=== PATIENT | female | born 1990 | race Caucasian/White ===

== ENCOUNTER → 2016-06-06 | Outpatient (CLI) | payer OTHER ==
[2016-06-06 14:29] LABS: BASO % 0.1 % (0.0-1.0); EOS % 0.4 % (0.0-3.0); LARGE UNSTAINED CELL # 0.1 K/mm3 (0.0-0.4); LARGE UNSTAINED CELL % 1.4 % (0.0-4.0); LYMPH # 1.4 K/mm3 (1.5-6.5); LYMPH % 16.5 % (24.0-44.0); MEAN CORPUSCULAR HEMOGLOBIN 31.4 pg (27.0-33.0); MEAN CORPUSCULAR HGB CONC 35.6 g/dl (32.0-36.5); MEAN CORPUSCULAR VOLUME 88.2 fl (80.0-96.0); MONO # 0.2 K/mm3 (0.0-0.8); MONO % 2.7 % (0.0-5.0); NEUTROPHILS # 6.8 K/mm3 (1.8-7.7); NEUTROPHILS % 78.8 % (36.0-66.0); PLATELET COUNT, AUTOMATED 172 k/mm3 (150-450); WHITE BLOOD COUNT 8.6 K/mm3 (4.0-10.0)
--- NOTE | 2016-06-07 02:43 | REP ---
Clinical: Anatomical evaluation. Comparison: 05/08/2016 . Findings: Examination demonstrates a single live intrauterine in transverse (head towards the maternal right side) presentation. motion is identified by technologist. Placenta is noted anteriorly and grade zero without evidence for placenta previa or abruption. Amniotic fluid volume is normal. Cervix measures 5.2 cm in length and appears closed. No evidence for nuchal cord. Gestational age by LMP 24 weeks 3 days with MALENA 09/23/2016 . Gestational age by current measurements 25 weeks 4 days with MALENA 09/15/2016 . FHR equals 147 beats per minute. Estimated weight 816 grams ( 76 percentile). Anatomical assessment demonstrates normal structures including cranium, choroid plexus, cavum, cerebellum/posterior fossa, facial features, lungs, four-chamber heart/ventricular outflow tracts, diaphragm, stomach, cord insertion/three-vessel cord, kidneys/bladder, spine, and extremities. Echogenic focus on the left cardiac ventricle likely prominent chordae tendineae. Impression: Single live intrauterine in transverse lie demonstrating appropriate interval growth. Anatomical assessment is complete and essentially normal. Prominent chordae tendineae noted. Signed by Chao Hobbs MD 06/07/2016 02:35 A
== END ==
LOC: M RAD 11:57 → M LAB 11:57 → MERGE 16:00
PROVIDERS: ATTEND Obstetrics & Gynecology
DX: Z34.02 Encounter for supervision of normal first pregnancy, second trimester (principal)

== ENCOUNTER → 2016-08-27 | Outpatient (REF) | payer OTHER | LOC: M LAB REF 12:53 | PROVIDERS: ATTEND Obstetrics & Gynecology | DX: Z34.03 Encounter for supervision of normal first pregnancy, third trimester (principal) ==

== ENCOUNTER 2016-09-25 11:22 | Inpatient (IN) | payer OTHER ==
[2016-09-25] VITALS (8 sets, daily range): BP systolic 107–142; BP diastolic 56–77
[~2016-09-25] VITALS: Ht 160 cm; Wt 94.0 kg
[2016-09-25] MEDS ORDERED: PENICILLIN G POTASSIUM IV 5 MU in D5W MINI-BAG PLUS 100 ML IV STA ×2 (11:51→18:26)
[2016-09-25] MEDS ORDERED: VALT500T PO (11:57)
[2016-09-25] MEDS ORDERED: miSOPROStol 50 MCG 1/2 TAB (S0191) PO ONE (12:00)
[2016-09-25 12:36] LABS: MEAN CORPUSCULAR HEMOGLOBIN 30.8 pg (27.0-33.0); MEAN CORPUSCULAR HGB CONC 34.4 g/dl (32.0-36.5); MEAN CORPUSCULAR VOLUME 89.3 fl (80.0-96.0); RED CELL DISTRIBUTION WIDTH 13.7 % (11.5-14.5); WHITE BLOOD COUNT 7.2 K/mm3 (4.0-10.0)
[2016-09-25] MEDS ORDERED: PENICILLIN G POTASSIUM IV 2.5 MU in D5W 100 ML IV SCH (16:00)
[2016-09-25] MEDS ORDERED: miSOPROStol 50 MCG 1/2 TAB (S0191) PO SCH (17:30)
[2016-09-25] MEDS ORDERED: BUTORPHANOL 2 MG/ML INJ (J0595) IV ONE (21:00)
[2016-09-25] MEDS ORDERED: PROMETHAZINE INJ 25 MG/ML VIAL (J2550) IV ONE (21:00)
[2016-09-25] MEDS: PENICILLIN G POTASSIUM IV 2.5 MU in D5W 100 ML IV SCH (22:40)
[2016-09-26] VITALS (29 sets, daily range): BP systolic 95–131; BP diastolic 52–79
[2016-09-26] MEDS ORDERED: FENTANYL 2MCG/ML ROPIVACAINE 0.2% IN 0.9% NACL 200ML IVBAG As Ordered ONE (01:22)
[2016-09-26] MEDS ORDERED: FENTANYL/ROPIVACAINE/NACL BAG 200 ML EPIDURAL SCH (01:25)
[2016-09-26] MEDS ORDERED: NALOXONE INJ 0.4 MG/1 ML VIAL (J2310) IV PRN ×3 (01:25→07:00)
[2016-09-26] MEDS ORDERED: ONDANSETRON 4MG/2ML VIAL (J2405) IV PRN ×4 (01:25→07:45)
[2016-09-26] MEDS ORDERED: EPIDURAL COMMENT XX SCH (01:25)
[2016-09-26] MEDS ORDERED: REFRIGERATOR IV KEYS XX PRN (01:25)
[2016-09-26] MEDS ORDERED: ePHEDrine SULFATE 25 MG/5 ML(5MG/ML) SYRINGE IV PRN (01:25)
[2016-09-26] MEDS ORDERED: EPIDURAL/PCA KEYS XX PRN (01:25)
[2016-09-26] MEDS ORDERED: LACTATED RINGER'S 1000 ML IV PRN (01:25)
[2016-09-26] MEDS ORDERED: diphenhydrAMINE INJ 50MG/ML VIAL (J1200) IV PRN (01:25)
[2016-09-26] MEDS ORDERED: OXYTOCIN 30 UNITS IN 0.9% NaCl 500ML IV BAG (J2590) As Ordered ONE (02:14)
[2016-09-26] MEDS ORDERED: OXYTOCIN DRIP 30 UNITS in APPROPRIATE DILUENT 1 EA IV SCH (02:15)
[2016-09-26] MEDS: PENICILLIN G POTASSIUM IV 2.5 MU in D5W 100 ML IV SCH (02:32)
[2016-09-26] MEDS ORDERED: ACETAMINOPHEN TAB 650MG DOSE (2X325MG) As Ordered ONE (05:11)
[2016-09-26] MEDS ORDERED: ACETAMINOPHEN TAB 650MG DOSE (2X325MG) PO ONE (05:15)
[2016-09-26] MEDS ORDERED: BICITRA 30ML SOLN UDC As Ordered ONE (06:15)
[2016-09-26] MEDS ORDERED: GENTAMICIN 80 MG in APPROPRIATE DILUENT 1 EA IV ONE (06:15)
[2016-09-26] MEDS ORDERED: ceFAZolin 2 GM/D5W 50 ML IV BAG (J0690) As Ordered ONE (06:28)
[2016-09-26] MEDS ORDERED: LIDOCAINE PRES-FREE 2% 10ML AMP As Ordered ONE (06:45)
[2016-09-26] MEDS ORDERED: EPINEPHrine INJ 1 MG/ML 1ML VIAL/AMP As Ordered ONE (06:45)
[2016-09-26] MEDS ORDERED: MIDAZOLAM INJ 2 MG/2 ML VIAL (J2250) As Ordered ONE (06:46)
[2016-09-26] MEDS ORDERED: ONDANSETRON 4MG/2ML VIAL (J2405) As Ordered ONE (06:48)
[2016-09-26] MEDS ORDERED: MORPHINE PRES-FREE INJ 10 MG/10 ML VIAL (J2274) As Ordered ONE (06:54)
[2016-09-26 06:55] LABS: CORD GAS ABE V -12.1; CORD GAS HCO3 V 14.8 MEQ/L; CORD GAS O2 SAT V 61.9 %; CORD GAS PCO2 V 37.1 mmHg; CORD GAS PH V 7.219 UNITS; CORD GAS SBC V 14.5 MEQ/L; CORD GAS TCO2 V 15.9 MEQ/L
[2016-09-26 06:56] LABS: CORD GAS HCO3 A 17.8 MEQ/L; CORD GAS O2 SAT A 33.6 %; CORD GAS PCO2 A 61.8 mmHg; CORD GAS PH A 7.077 UNITS; CORD GAS PO2 A 24.4 mmHg; CORD GAS SBC A 13.4 MEQ/L; CORD GAS TCO2 A 19.7 MEQ/L
[2016-09-26] MEDS ORDERED: METOCLOPRAMIDE INJ 10MG/2ML VIAL (J2765) IV PRN (07:00)
--- NOTE | 2016-09-26 07:03 | HPE ---
DATE OF ADMISSION: 09/25/2016 Victoria is a 26-year-old female para 0 with an EDC of 40-2/7 weeks gestation who is admitted for induction. Upon admission, no bleeding. No leakage of fluid. Good movement. 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 She has been on suppressive therapy. No recent outbreak during this . Upon admission, reports no signs or symptoms of herpes. records reviewed. Blood type is O+, rubella immune, hepatitis negative, HIV negative, GC chlamydia negative, 1-hour sugar testing was within normal limits. Her GBS is positive. History of herpes infection. PAST SURGICAL HISTORY: Denies. SOCIAL HISTORY: The patient is . Denies any alcohol or drug use. REVIEW OF SYSTEMS: Unremarkable. MEDICATIONS: - vitamins - Valtrex ALLERGY: drug allergy. PHYSICAL EXAMINATION: Obese female in no acute distress. Abdomen: Soft, nontender, nondistended. Extremities: No clubbing, cyanosis or edema. Vaginal exam done. Thorough inspection of the vulva and vaginal area. No evidence of any herpes lesion noted. Her cervix is fingertip thickened posterior. heart rate 141 to 150s, reactive, occasional contractions. ASSESSMENT: 1. Intrauterine at 40-2/7 weeks gestation being admitted for an induction. 2. History of HSV-1 and 2 currently on suppressive therapy. No evidence of any outbreak during this . 3. GBS positive. PLAN: Admit to labor and delivery. Routine labs sent. Induction process discussed with the patient. We will proceed with Cytotec induction as we do not have Cervidil on formulary. The patient is counseled extensively. The risk and benefit of Cytotec discussed as well as the non-FDA approval, will be started for GBS prophylaxis. Pain management also discussed. The patient opts for an epidural. Will continue to monitor. Anticipate delivery.
[2016-09-26] MEDS ORDERED: METHYLERGONOVINE MALEATE 0.2 MG TAB PO PRN (07:15)
[2016-09-26] MEDS ORDERED: MEASLES,MUMPS,RUBELLA VACCINE INJ (MMR-II) (90707) SC SCH (07:15)
[2016-09-26] MEDS ORDERED: RHOGAM 300 MCG (1500 IU) INJ (J2790) IM SCH (07:15)
[2016-09-26] MEDS ORDERED: PHENYLephrine HCL 500 MCG/5 ML (100MCG/ML) SYRINGE (J2370) As Ordered ONE (07:23)
[2016-09-26] MEDS ORDERED: fentaNYL 100 MCG/2 ML INJECTION (J3010) IV PRN (07:45)
[2016-09-26] MEDS ORDERED: NALBUPHINE HCL 10 MG/ML AMP (J2300) IV PRN (07:45)
[2016-09-26] MEDS ORDERED: KETOROLAC 30 MG/ML VIAL (J1885) IV PRN (07:45)
--- NOTE | 2016-09-26 07:54 | RO ---
DATE OF PROCEDURE: 09/26/2016 PREPROCEDURE DIAGNOSES: 1. Intrauterine at 40-2/7 weeks gestation. 2. Non-reassuring heart rate tracing. tachycardia and repetitive variable deceleration. 3. Chorioamnionitis. 4. GBS positive. 5. Remote from delivery. POSTPROCEDURE DIAGNOSES: 1. Intrauterine at 40-2/7 weeks gestation. 2. Non-reassuring heart rate tracing. tachycardia and repetitive variable deceleration. 3. Chorioamnionitis. 4. GBS positive. 5. Remote from delivery. 6. Nuchal cord times one. 7. Meconium stained fluid. PROCEDURE: Primary low transverse via Pfannenstiel incision. SURGEON: Dr. Jet العراقي. [employer] SALES REPRESENTATIVE: Kathrine King. ANESTHESIA: Epidural. COMPLICATION: None. ESTIMATED BLOOD LOSS: 500 mL. Victoria is a 26-year-old female 1, para 0 who was admitted at 40-2/7 weeks gestation for induction. She underwent Cytotec induction and then progressed to approximately 4 cm. However, she developed tachycardia and maternal temperature up to 101. Also had repetitive variable deceleration. Given that she was remote from delivery and chorioamnionitis, a decision was made to proceed with primary section. The patient counseled extensively. Informed consent obtained. She does have history of positive GBS for which she was being treated. She has a history of herpes type 1 and 2 with no recent outbreak, was on suppressive therapy. FINDINGS: Live female infant in right occiput anterior position with a nuchal cord times one. 7 and 8. weight 8 pounds 6 ounces. Normal-appearing tubes with a small left ovarian cyst on the left ovary. PROCEDURE: After obtaining informed consent, the patient was taken to the operating room where epidural anesthetic was found to be adequate. She was then draped and prepped in usual sterile fashion in the supine position. At this point, a Pfannenstiel incision was made. This was carried down to the fascia. Fascia was incised in midline fashion and carried through laterally. Superior aspect of the fascia was then grasped with two Lacie clamps, tented off and dissected off the rectus muscles sharply. The inferior aspect was dissected off in a similar fashion. Rectus muscles in midline fashion. Perineum identified. Perineal cavity entered bluntly. Superior and inferior dissection of peritoneum was then done with good visualization of the bladder. At this point, a Mobius skin retractor was placed. A low-transverse uterine incision was made. was delivered in atraumatic fashion. The nuchal cord was reduced. Cord doubly clamped and cut and was handed over to the waiting wood heel fitter machine. Cord blood and cord gas were sent. Placenta removed manually. Uterus cleared of all clot and debris and the uterine incision was then repaired in two separate layers of #0 Vicryl sutures. The pelvis was copiously irrigated with normal saline and suctioned out. Attention turned to the peritoneum which was closed in running fashion using #2-0 Vicryl. Fascia closed in two separate segment of #0 Vicryl sutures and the skin was reapproximated in subcuticular fashion using #3-0 Vicryl and a Herber. Steri-Strip placed. The patient tolerated the procedure well. She was then transferred to recovery room in stable condition.
[2016-09-26] MEDS ORDERED: LR 1,000 ML IV SCH (08:00)
[2016-09-26] MEDS: PRENATAL VITAMIN TAB PO SCH (09:00)
[2016-09-26] MEDS: LR 1,000 ML IV SCH ×3 (09:00→23:15)
[2016-09-26] MEDS: NALBUPHINE HCL 10 MG/ML AMP (J2300) IV PRN ×2 (13:06→20:19)
[2016-09-26] MEDS: IBUPROFEN 800 MG TAB PO SCH (17:04)
[2016-09-26] MEDS: NORCO, ANEXSIA 5/325MG TABLET (HYDROcodone/ACETAMINOPHEN) PO PRN ×2 (17:04→23:11)
[2016-09-27] MEDS: IBUPROFEN 800 MG TAB PO SCH ×3 (02:00→17:35)
[2016-09-27 02:28] VITALS: BP 115/59
[2016-09-27] MEDS: NORCO, ANEXSIA 5/325MG TABLET (HYDROcodone/ACETAMINOPHEN) PO PRN ×4 (05:21→20:06)
[2016-09-27] MEDS ORDERED: BICITRA 30ML SOLN UDC PO SCH (06:00)
[2016-09-27 06:34] VITALS: BP 109/54
[2016-09-27 06:53] LABS: MEAN CORPUSCULAR HEMOGLOBIN 30.8 pg (27.0-33.0); MEAN CORPUSCULAR HGB CONC 34.8 g/dl (32.0-36.5); MEAN CORPUSCULAR VOLUME 88.5 fl (80.0-96.0); RED CELL DISTRIBUTION WIDTH 13.9 % (11.5-14.5); WHITE BLOOD COUNT 9.2 K/mm3 (4.0-10.0)
[2016-09-27] MEDS: LR 1,000 ML IV SCH (07:15)
[2016-09-27] MEDS: PRENATAL VITAMIN TAB PO SCH (10:14)
[2016-09-27 18:44] VITALS: BP 130/74
[2016-09-28] MEDS: IBUPROFEN 800 MG TAB PO SCH ×3 (02:22→18:13)
[2016-09-28] MEDS: NORCO, ANEXSIA 5/325MG TABLET (HYDROcodone/ACETAMINOPHEN) PO PRN ×5 (02:23→20:29)
[2016-09-28 06:06] VITALS: BP 121/70
[2016-09-28] MEDS ORDERED: OXYC2.5T PO (08:45)
[2016-09-28] MEDS: PRENATAL VITAMIN TAB PO SCH (09:25)
[2016-09-28] MEDS: DOCUSATE SODIUM 100 MG CAP PO PRN (15:38)
[2016-09-28 18:00] VITALS: BP 120/77
[2016-09-29] MEDS: IBUPROFEN 800 MG TAB PO SCH ×2 (01:00→08:59)
[2016-09-29] MEDS: NORCO, ANEXSIA 5/325MG TABLET (HYDROcodone/ACETAMINOPHEN) PO PRN ×3 (01:08→09:08)
[2016-09-29 05:45] VITALS: BP 126/70
[2016-09-29] MEDS: PRENATAL VITAMIN TAB PO SCH (08:58)
[2016-09-29] MEDS: DOCUSATE SODIUM 100 MG CAP PO PRN (09:07)
[2016-09-29] MEDS ORDERED: PREN27TA3 PO (11:06)
[2016-09-29] MEDS ORDERED: MOTR200T44 PO (11:07)
--- NOTE | 2016-09-29 11:14 | IPNPDOC ---
Progress Note Date of Service The patient was seen on 09/27/16 at 0840. Progress Note SUBJECTIVE: No complaints. She is ambulating without difficulty. She has showered. without difficulty. OBJECTIVE: PHYSICAL EXAMINATION: VITAL SIGNS: 97.9, 79, 18, 109/54 LUNGS:Regular rate. No use of accessory muscles. BREAST EXAMINATION:Soft, nontender. SECTION INCISION: Edges approximated. Clean, dry, no drainage. Steri strips present. EXTREMITIES: Bilateral lower extremities, +1 pitting edema, no erythema. CURRENT LABS: Please see below. ASSESSMENT: Day 1 postoperative. PLAN: Continue supportive nursing care. VS, I&O, 24H, Fishbone Vital Signs/I&O Vital Signs Date Time Temp Pulse Resp B/P (MAP) Pulse Ox O2 Delivery O2 Flow Rate FiO2 09/29/16 09:38 18 09/29/16 09:08 Room Air 09/29/16 05:45 98.1 78 126/70 (88) 09/28/16 06:06 100 I&O- Last 24 Hours up to 6 AM 09/29/16 06:00 Intake Total 1040 ml Balance 1040 ml PORSHA MATUTE CNM September 29, 2016 11:14
--- NOTE | 2016-09-29 11:35 | DS.PDOC ---
Discharge Summary General Date of Admission September 25, 2016 at 11:22 Date of Discharge 09/29/16. Attending Physician: Jet العراقي DO Discharge Summary PROCEDURES PERFORMED DURING STAY: primary low transverse section. ADMITTING DIAGNOSES: 1. IUP @ 40.2 gestation. 2. elective IOL DISCHARGE DIAGNOSES: 1. Day 3 postoperative. COMPLICATIONS/CHIEF COMPLAINT: Induction. HISTORY OF PRESENT ILLNESS: Patient is a 26 year old female who is now a who was admitted for an elective IOL at 40 weeks 2 days gestation. She received 2 doses of cytotec and IV Pitocin for IOL. She obtained an epidural for pain management. The patient had a primary low transverse section due to a maternal temperature, tachycardia, non reassuring heart rate tracing, and she was remote from delivery. She was diagnosed with chorioamnionitis. DISCHARGE MEDICATIONS: Please see below. ALLERGIES: Please see below. PHYSICAL EXAMINATION ON DISCHARGE: VITAL SIGNS: Please see below. Breasts: Full and tender. wearing a tight bra. RESPIRATORY EXAMINATION: Rate regular. No use of accessory muscles. ABDOMINAL EXAMINATION: Incision edges approximated. No drainage. Steri strips present. EXTREMITIES: bilateral lower extremities with +1 pitting edema. No redness or tenderness. LABORATORY DATA: Please see below. ACTIVITY: As tolerated. DIET: Regular. DISCHARGE INSTRUCTIONS: 1. Patient to follow up in 2 weeks for incision check and at 6 weeks . 2. Education done with patient on mastitis, endometritis, incision care, infection, DVT, pulmonary embolism, hemorrhage, pain management and depression. DISCHARGE CONDITION: Stable. Vital Signs/I&Os Vital Signs Date Time Temp Pulse Resp B/P (MAP) Pulse Ox O2 Delivery O2 Flow Rate FiO2 09/29/16 09:38 18 09/29/16 09:08 Room Air 09/29/16 05:45 98.1 78 126/70 (88) 09/28/16 06:06 100 I&O- Last 24 Hours up to 6 AM 09/29/16 06:00 Intake Total 1040 ml Balance 1040 ml Discharge Medications Scheduled Ibuprofen (Motrin Ib) 200 Mg Tab, 800 MG PO Q8H, (Reported) Multivitamins/ ( 27-1 mg) 1 Tab Tab, 1 TAB PO DAILY, (Reported) Allergies Coded Allergies: No Known Allergies (Verified , 11/16/02) PORSHA MATUTE CNM September 29, 2016 11:35
== END 2016-09-29 11:24 | disposition home or self-care (01) | DRG 765 ==
LOC: M LDI 11:22 → M OBS 09-26 08:53
PROVIDERS: ADMIT Obstetrics & Gynecology; ATTEND Obstetrics & Gynecology
PROC: 3E0DXGC Introduction of Other Therapeutic Substance into Mouth and Pharynx, External Approach (ICD-10-PCS; 2016-09-25)
PROC: 10D00Z1 Extraction of Products of Conception, Low, Open Approach (ICD-10-PCS; principal; 2016-09-26 09:10)
DX: O48.0 Post-term pregnancy (principal); O41.1230 Chorioamnionitis, third trimester, not applicable or unspecified; O98.52 Other viral diseases complicating childbirth; Z37.0 Single live birth; Z3A.40 40 weeks gestation of pregnancy; O99.824 Streptococcus B carrier state complicating childbirth; Z79.899 Other long term (current) drug therapy; B00.9 Herpesviral infection, unspecified; O76 Abnormality in fetal heart rate and rhythm complicating labor and delivery; O77.0 Labor and delivery complicated by meconium in amniotic fluid; O69.82X0 Labor and delivery complicated by other cord entanglement, without compression, not applicable or unspecified; N83.202 Unspecified ovarian cyst, left side; O34.83 Maternal care for other abnormalities of pelvic organs, third trimester

== ENCOUNTER → 2019-02-05 | Outpatient (REF) | payer OTHER ==
[~2019-02-05] MED LIST: MOTR200T44 PO; OXYC1TAB PO; PREN27TA3 PO; VALT500T PO
[2019-02-05 16:44] LABS: HEMOGLOBIN 13.1 g/dl (12.0-15.5); MEAN CORPUSCULAR HEMOGLOBIN 30.8 pg (27.0-33.0); MEAN CORPUSCULAR HGB CONC 35.4 g/dl (32.0-36.5); MEAN CORPUSCULAR VOLUME 87.1 fl (80.0-96.0); PLATELET COUNT, AUTOMATED 197 10^3/uL (150-450); RED BLOOD COUNT 4.25 10^6/uL (4.00-5.40); WHITE BLOOD COUNT 7.8 10^3/uL (4.0-10.0)
[2019-02-05 17:24] LABS: HCG, SERUM QUANTITATIVE 8496 MIU/ML
[2019-02-06 11:34] LABS: RUBELLA IgG QUALITATIVE IMMUNE (IMMUNE)
[2019-02-06 12:03] LABS: HEPATITIS C VIRUS ABY INDEX 0.1 INDEX (<0.8)
[2019-02-06 12:04] LABS: HIV 1&2 SCREEN CENTAUR NEGATIVE (NEGATIVE)
== END ==
LOC: M LAB REF 16:13
PROVIDERS: ATTEND Obstetrics & Gynecology
DX: Z32.01 Encounter for pregnancy test, result positive (principal); O36.80X0 Pregnancy with inconclusive fetal viability, not applicable or unspecified; Z3A.00 Weeks of gestation of pregnancy not specified

== ENCOUNTER → 2019-03-05 | Outpatient (REF) | payer OTHER | LOC: M LAB REF 16:48 | PROVIDERS: ATTEND Obstetrics & Gynecology | DX: Z34.81 Encounter for supervision of other normal pregnancy, first trimester (principal) ==

== ENCOUNTER → 2019-05-15 | Outpatient (CLI) | payer OTHER ==
--- NOTE | 2019-05-15 17:35 | REP ---
Obstetric sonography: History: Supervision of for anatomy. Findings: Scanning through the gravid uterus demonstrates a viable single intrauterine gestation in a cephalic lie. motion is observed and heart rate is recorded at 143 beats per minute. An anterior grade 0 placenta is seen without evidence of previa or abruption. Amniotic fluid is subjectively normal. Closed cervical length is measured transabdominally at 3.9 cm. There is a 3.0 cm paraovarian cyst in the maternal left adnexa. No anomaly is seen. The following anatomic structures are identified and felt to be sonographically unremarkable: cranium, choroid plexus, cavum, cerebellum and posterior fossa, face and profile, lungs, four-chamber heart with left and right ventricular outflow tract views, diaphragm, left-sided stomach, abdominal wall cord insertion, three-vessel cord, kidneys and bladder, spine, upper and lower extremities. Biometry chart: BPD 4.6 cm = 19.9 weeks HC 17.1 cm = 19.7 weeks AC 16.2 cm = 21.3 weeks FL 3.1 cm = 19.6 weeks HC/AC ratio 1.06. Cephalic index normal 0.75. Estimated weight 352 grams, 0 pounds 12 ounces, 39th percentile for 20 weeks 6 days. Impression: Viable single intrauterine gestation at 20.6 weeks by today's composite sonographic criteria. MALENA by today's sonography September 28, 2019. anatomic survey is felt to be complete.
== END ==
LOC: M WHC 14:54
PROVIDERS: ATTEND Obstetrics & Gynecology
DX: Z36.89 Encounter for other specified antenatal screening (principal); Z3A.20 20 weeks gestation of pregnancy

== ENCOUNTER → 2019-07-08 | Outpatient (CLI) | payer OTHER ==
[2019-07-08 20:20] LABS: HEMATOCRIT 35.3 % (36.0-47.0); HEMOGLOBIN 12.1 g/dl (12.0-15.5); MEAN CORPUSCULAR HEMOGLOBIN 31.3 pg (27.0-33.0); MEAN CORPUSCULAR HGB CONC 34.3 g/dl (32.0-36.5); MEAN CORPUSCULAR VOLUME 91.5 fl (80.0-96.0); PLATELET COUNT, AUTOMATED 145 10^3/uL (150-450); RED BLOOD COUNT 3.86 10^6/uL (4.00-5.40); WHITE BLOOD COUNT 8.2 10^3/uL (4.0-10.0)
== END ==
LOC: M WUC 15:03
PROVIDERS: ATTEND Obstetrics & Gynecology
DX: Z34.82 Encounter for supervision of other normal pregnancy, second trimester (principal)

== ENCOUNTER → 2019-09-02 | Outpatient (REF) | payer OTHER | LOC: M LAB REF 16:11 | PROVIDERS: ATTEND Obstetrics & Gynecology | DX: Z34.83 Encounter for supervision of other normal pregnancy, third trimester (principal) ==

== ENCOUNTER → 2019-09-21 | Outpatient (CLI) | payer OTHER ==
[~2019-09-21] MED LIST changes: +IBUP80TA PO; +PERCOCET PO; +VALT1TAB PO
== END ==
LOC: M LABSMTC 10:39
PROVIDERS: ATTEND Anesthesiology
DX: Z01.818 Encounter for other preprocedural examination (principal); Z11.59 Encounter for screening for other viral diseases
CPT/HCPCS: C9803; U0003

== ENCOUNTER 2019-09-24 05:34 | Inpatient (IN) | payer OTHER ==
[2019-09-24] VITALS (9 sets, daily range): BP systolic 92–116; BP diastolic 50–64
[~2019-09-24] VITALS: Ht 160 cm; Wt 91.2 kg
[~2019-09-24 05:34] MED LIST changes: -IBUP80TA PO; -PERCOCET PO
[2019-09-24] MEDS ORDERED: LR 1,000 ML IV SCH (05:50)
[2019-09-24] MEDS ORDERED: LACTATED RINGER'S 1000 ML IV STA (05:50)
[2019-09-24] MEDS ORDERED: ceFAZolin SOD 2 GM in IV 1 EA IV ONE (06:00)
[2019-09-24] MEDS ORDERED: BICITRA 30ML SOLN UDC PO ONE (06:00)
[2019-09-24 06:35] LABS: HEMOGLOBIN 12.7 g/dl (12.0-15.5); MEAN CORPUSCULAR HEMOGLOBIN 30.8 pg (27.0-33.0); MEAN CORPUSCULAR HGB CONC 34.3 g/dl (32.0-36.5); MEAN CORPUSCULAR VOLUME 89.8 fl (80.0-96.0); PLATELET COUNT, AUTOMATED 184 10^3/uL (150-450); RED BLOOD COUNT 4.12 10^6/uL (4.00-5.40)
[2019-09-24] MEDS ORDERED: OXYTOCIN INJ 10 UNITS/ML VIAL (J2590) As Ordered ONE ×3 (07:15→08:49)
[2019-09-24] MEDS ORDERED: MORPHINE PRES-FREE INJ 10 MG/10 ML VIAL (J2274) As Ordered ONE (07:18)
[2019-09-24] MEDS ORDERED: OXYTOCIN DRIP 30 UNITS in IV 1 EA IV SCH (07:33)
[2019-09-24] MEDS ORDERED: METOCLOPRAMIDE INJ 10MG/2ML VIAL (J2765 PER 1) IV PRN (07:44)
[2019-09-24] MEDS ORDERED: NALOXONE INJ 0.4MG/1ML VIAL (J2310 PER 1MG) IV PRN ×2 (07:44)
[2019-09-24] MEDS ORDERED: diphenhydrAMINE 50MG/ML VIAL (J1200) IV PRN (07:44)
[2019-09-24] MEDS ORDERED: NALBUPHINE HCL 10 MG/ML AMP (J2300) IV PRN (07:44)
[2019-09-24] MEDS ORDERED: ONDANSETRON 4MG/2ML VIAL IV PRN ×2 (07:44→09:00)
[2019-09-24] MEDS ORDERED: RHOGAM 300 MCG (1500 IU) INJ (J2790) IM SCH (07:45)
[2019-09-24] MEDS ORDERED: MEASLES,MUMPS,RUBELLA VACCINE INJ (MMR-II) (90707) SC SCH (07:45)
[2019-09-24] MEDS ORDERED: MOM 30ML SUSPENSION UDC PO PRN (07:45)
[2019-09-24] MEDS ORDERED: PHENYLephrine HCL 500 MCG/5 ML (100MCG/ML) SYRINGE (J2370) As Ordered ONE (07:50)
[2019-09-24] MEDS ORDERED: ePHEDrine SULFATE 25 MG/5 ML(5MG/ML) SYRINGE As Ordered ONE (07:50)
[2019-09-24] MEDS ORDERED: ONDANSETRON 4MG/2ML VIAL As Ordered ONE (08:05)
[2019-09-24] MEDS ORDERED: dexameTHASONE 4 MG/ML 1ML VIAL (J1100 PER 1MG) As Ordered ONE (08:05)
[2019-09-24 08:16] LABS: CORD GAS ABE A -1.8; CORD GAS HCO3 A 21.8 MEQ/L; CORD GAS O2 SAT A 92.5 %; CORD GAS PCO2 A 33.6 mmHg; CORD GAS PH A 7.43 UNITS; CORD GAS PO2 A 52.1 mmHg; CORD GAS SBC A 22.9 MEQ/L; CORD GAS TCO2 A 22.8 MEQ/L
[2019-09-24 08:17] LABS: CORD GAS ABE V -2.4; CORD GAS HCO3 V 21.1 MEQ/L; CORD GAS O2 SAT V 79.4 %; CORD GAS PCO2 V 32.7 mmHg; CORD GAS PH V 7.428 UNITS; CORD GAS PO2 V 35.1 mmHg; CORD GAS SBC V 22.1 MEQ/L; CORD GAS TCO2 V 22.1 MEQ/L
[2019-09-24] MEDS ORDERED: propofoL 200 MG/20 ML VIAL As Ordered ONE (08:21)
[2019-09-24] MEDS ORDERED: KETOROLAC 60 MG/2 ML VIAL As Ordered ONE (08:39)
[2019-09-24] MEDS: DOCUSATE SODIUM 100 MG CAP PO SCH ×2 (09:00→21:12)
[2019-09-24] MEDS: PRENATAL VITAMINS CHEWABLE TABLET PO SCH (09:00)
[2019-09-24] MEDS ORDERED: fentaNYL 100 MCG/2 ML INJECTION (J3010) IV PRN (09:00)
[2019-09-24] MEDS ORDERED: oxyCODONE 5MG TAB PO PRN (09:00)
[2019-09-24] MEDS ORDERED: valACYclovir HCL 500 MG TAB PO ONE (10:00)
[2019-09-24] MEDS: PERCOCET 5MG/325MG TAB PO PRN ×2 (13:23→18:18)
[2019-09-24] MEDS: KETOROLAC 30 MG/ML 1ML VIAL IV SCH ×2 (14:59→21:12)
[2019-09-25] MEDS: PERCOCET 5MG/325MG TAB PO PRN ×4 (00:18→19:51)
[2019-09-25 02:00] VITALS: BP 90/53
[2019-09-25] MEDS: KETOROLAC 30 MG/ML 1ML VIAL IV SCH (03:25)
[2019-09-25 06:46] VITALS: BP 110/80
[2019-09-25 07:43] LABS: HEMATOCRIT 31.9 % (36.0-47.0); HEMOGLOBIN 10.9 g/dl (12.0-15.5); MEAN CORPUSCULAR HEMOGLOBIN 31.6 pg (27.0-33.0); MEAN CORPUSCULAR HGB CONC 34.2 g/dl (32.0-36.5); MEAN CORPUSCULAR VOLUME 92.5 fl (80.0-96.0); PLATELET COUNT, AUTOMATED 160 10^3/uL (150-450); RED BLOOD COUNT 3.45 10^6/uL (4.00-5.40); WHITE BLOOD COUNT 10.5 10^3/uL (4.0-10.0)
[2019-09-25] MEDS: DOCUSATE SODIUM 100 MG CAP PO SCH ×2 (08:21→19:51)
[2019-09-25] MEDS: PRENATAL VITAMINS CHEWABLE TABLET PO SCH (08:21)
[2019-09-25 10:05] VITALS: BP 99/52
[2019-09-25] MEDS: IBUPROFEN 800 MG TAB PO SCH ×2 (11:44→18:08)
[2019-09-25 14:05] VITALS: BP 124/62
[2019-09-25 18:00] VITALS: BP 99/58
[2019-09-25 22:00] VITALS: BP 94/50
[2019-09-26] MEDS: PERCOCET 5MG/325MG TAB PO PRN ×3 (00:41→12:11)
[2019-09-26 02:00] VITALS: BP 95/50
[2019-09-26] MEDS: IBUPROFEN 800 MG TAB PO SCH ×2 (03:34→11:03)
[2019-09-26 06:00] VITALS: BP 95/50
--- NOTE | 2019-09-26 07:16 | DS.PDOC ---
Discharge Summary General Date of Admission September 24, 2019 at 05:34 Date of Discharge 09/26/2019 Discharge Summary PROCEDURES PERFORMED DURING STAY: Repeat section. ADMITTING DIAGNOSES: 1. IUP at term. 2. Previous section, requesting repeat DISCHARGE DIAGNOSES: 1. Repeat section at term. COMPLICATIONS/CHIEF COMPLAINT: Term , Elective Repeat Ceserean Section. HISTORY OF PRESENT ILLNESS: 29yo G2 now P2 admitted by Dr العراقي 09/24/2019 for repeat section. HOSPITAL COURSE: Ambulating, tolerating regular diet. Voiding and passing flatus. Reports adequate pain management. DISCHARGE MEDICATIONS: Please see below. ALLERGIES: Please see below. PHYSICAL EXAMINATION ON DISCHARGE: VITAL SIGNS: Please see below. GENERAL: Appear comfortable, no distress HEENT: WNL NECK: Supple CARDIOVASCULAR EXAMINATION: HRR, normotensive RESPIRATORY EXAMINATION: Clear and unlabored ABDOMINAL EXAMINATION: Fundus firm. Wound clean, dry and well approximated EXTREMITIES: Equal strength and motion SKIN: Intact NEUROLOGICAL EXAMINATION: Grossly intact PSYCHIATRIC EXAMINATION: Appropriate LABORATORY DATA: Please see below. PROGNOSIS: Good ACTIVITY: As tolerated. DIET: As tolerated DISCHARGE PLAN: Home. Routine precautions. DISPOSITION: Home DISCHARGE INSTRUCTIONS: 1. Pain medication as required. Continue vitamins. Nothing vaginally for 6 wks. Call office for fever, nausea, vomiting, chills, foul lochia,s/s wound infection. RTO 2wks and 6wks. DISCHARGE CONDITION: Stable. Vital Signs/I&Os Vital Signs Date Time Temp Pulse Resp B/P (MAP) Pulse Ox O2 Delivery O2 Flow Rate FiO2 09/26/19 06:00 97.3 80 18 95/50 (65) 99 Room Air Discharge Medications Scheduled Pnv,Calcium 72/Iron/Folic Acid ( Vitamin Plus Low Iron) 1 Tab Tab, 1 TAB PO DAILY, (Reported) Valacyclovir HCl (Valtrex) 1,000 Mg Tablet, 1 GM PO DAILY, (Reported) Allergies Coded Allergies: No Known Allergies (Verified , 11/16/02) Keren Vaughan CNM September 26, 2019 07:16
[2019-09-26] MEDS ORDERED: IBUP80TA PO (07:19)
[2019-09-26] MEDS ORDERED: PERCOCET PO (07:19)
[2019-09-26] MEDS: PRENATAL VITAMINS CHEWABLE TABLET PO SCH (07:49)
[2019-09-26] MEDS: DOCUSATE SODIUM 100 MG CAP PO SCH (07:49)
--- NOTE | 2019-09-29 10:20 | RO ---
DATE OF PROCEDURE: 09/24/2019 Victoria is a 29-year-old female, 2, para 1-0-0-1 with a history of prior section who was admitted at 39+ weeks' gestation for elective repeat section. PREOPERATIVE DIAGNOSIS: Term for elective repeat section. POSTOPERATIVE DIAGNOSES: 1. Term for elective repeat section. 2. Left ovarian/paratubal cyst. PROCEDURES: 1. Repeat section. 2. Left ovarian cystectomy. 3. Revision of old scar. ANESTHESIA: Spinal. SURGEON: Jet العراقي DO COMPLICATION: None. ESTIMATED BLOOD LOSS: 700 mL. FINDINGS: Live male , occiput transverse position. scores 9 and 9. weight 8 pounds 8 ounces. Left ovarian/paratubal cyst removed intact. The remaining ovary and fallopian tubes were within normal limits. DESCRIPTION OF PROCEDURE: After obtaining informed consent, the patient was taken to the operating room where spinal anesthetic was found be adequate. She was then draped and prepped in usual sterile fashion in supine position. At this point, elliptical incision was made. The old scar was removed. This was sent. The incision was then carried down to the fascia. Fascia was incised in midline fashion and carried through laterally. Superior aspect of the fascia was then grasped with two Lacie clamps, tented off, and dissected off the rectus muscles sharply. The inferior aspect was dissected off in a similar fashion. Rectus muscles in midline fashion. Peritoneum identified. Peritoneal cavity entered bluntly. Superior and inferior dissection of peritoneum was then done with good visualization of the bladder. At this point, a Mobius skin retractor was placed. A low-transverse uterine incision was made. Infant was delivered in atraumatic fashion. Nose and mouth bulb suctioned. Cord doubly clamped and cut, and infant was then handed over to the awaiting warmer. Cord blood and cord gas were sent. Placenta removed manually. Uterus cleared of all clot and debris, and the uterine incision was then repaired in two separate layers of 0 Vicryl sutures. At this point, attention was turned to the left ovarian/paratubal cyst. Using the Bovie, the shell of the cyst was then transected, and the cyst was then removed intact with the application of a hemostat. After removing the cyst, the crater of the cyst was then coagulated with the Bovie. Good hemostasis noted. Pelvis copiously irrigated with normal saline and suctioned out. Attention turned to the peritoneum, which was closed in running fashion using 2-0 Vicryl. Fascia closed in two separate segments of 0 Vicryl sutures. All superficial bleeders coagulated, and the skin was reapproximated in subcuticular fashion using 3-0 Vicryl on a Herber. Steri-Strips placed. The patient tolerated the procedure well. She was then transferred to recovery room in stable condition.
== END 2019-09-26 14:00 | disposition home or self-care (01) | DRG 768 ==
LOC: M LDI 05:34 → M OBS 10:14
PROVIDERS: ADMIT Obstetrics & Gynecology; ATTEND Obstetrics & Gynecology
PROC: 0UB10ZX Excision of Left Ovary, Open Approach, Diagnostic (ICD-10-PCS; 2019-09-24)
PROC: 10E0XZZ Delivery of Products of Conception, External Approach (ICD-10-PCS; principal; 2019-09-24 07:30)
DX: O34.211 Maternal care for low transverse scar from previous cesarean delivery (principal); Z37.0 Single live birth; Z3A.39 39 weeks gestation of pregnancy; O99.89 Other specified diseases and conditions complicating pregnancy, childbirth and the puerperium; N83.8 Other noninflammatory disorders of ovary, fallopian tube and broad ligament; O26.893 Other specified pregnancy related conditions, third trimester

== ENCOUNTER 2020-01-07 15:18 | Emergency (ER) | payer OTHER ==
[~2020-01-07] VITALS: Ht 160 cm; Wt 85.6 kg
[~2020-01-07 15:18] MED LIST changes: +IBUP80TA PO; +PERCOCET PO
[2020-01-07] MEDS ORDERED: ACET-683 PO (15:36)
[2020-01-07] MEDS ORDERED: TRI-TAB16 (15:36)
--- NOTE | 2020-01-07 16:08 | REPVR ---
PROCEDURE INFORMATION: Exam: CT Head Without Contrast Exam date and time: 01/07/2020 3:49 PM Age: 29 years old Clinical indication: Pain; Headache; Additional info: Headache, vision changes TECHNIQUE: Imaging protocol: Computed tomography of the head without contrast. Radiation optimization: All CT scans at this facility use at least one of these dose optimization techniques: automated exposure control; mA and/or kV adjustment per patient size (includes targeted exams where dose is matched to clinical indication); or iterative reconstruction. COMPARISON: No relevant prior studies available. FINDINGS: Brain: No hemorrhage. Unremarkable white matter for the patient's age. No mass effect. No evolving territorial infarct. Ventricles: No ventriculomegaly. Bones/joints: Unremarkable. No acute fracture. Sinuses: Visualized sinuses are unremarkable. No fluid levels. Mastoid air cells: Visualized mastoid air cells are well aerated. Soft tissues: Unremarkable. IMPRESSION: No acute intracranial abnormality seen. Electronically signed by: Bianka Jacob On 01/07/2020 16:08:23 PM
[2020-01-07] MEDS ORDERED: NS 1,000 ML IV ONE (16:45)
[2020-01-07] MEDS ORDERED: METOCLOPRAMIDE INJ 10MG/2ML VIAL (J2765 PER 1) IV ONE (16:45)
[2020-01-07 17:43] LABS: BASO % 0.2 % (0.0-1.0); EOS # 0.1 10^3/uL (0.0-0.5); EOS % 0.6 % (0.0-3.0); HEMATOCRIT 42.6 % (36.0-47.0); HEMOGLOBIN 14.5 g/dl (12.0-15.5); LYMPH # 1.5 10^3/uL (1.5-5.0); LYMPH % 15.2 % (24.0-44.0); MEAN CORPUSCULAR HEMOGLOBIN 30.7 pg (27.0-33.0); MEAN CORPUSCULAR VOLUME 90.1 fl (80.0-96.0); MONO # 0.4 10^3/uL (0.0-0.8); MONO % 4.4 % (0.0-5.0); NEUTROPHILS # 7.8 10^3/uL (1.5-8.5); NEUTROPHILS % 79.2 % (36.0-66.0); PLATELET COUNT, AUTOMATED 238 10^3/uL (150-450); RED BLOOD COUNT 4.73 10^6/uL (4.00-5.40); WHITE BLOOD COUNT 9.9 10^3/uL (4.0-10.0)
[2020-01-07 18:00] LABS: ALT/SGPT 39 U/L (12-78); BILIRUBIN,DIRECT 0.2 MG/DL (0.0-0.2); BLOOD UREA NITROGEN 11 MG/DL (7-18); CALCIUM LEVEL 9.5 MG/DL (8.5-10.1); CARBON DIOXIDE LEVEL 30 MEQ/L (21-32); CHLORIDE LEVEL 106 MEQ/L (98-107); FREE T4 1.12 NG/DL (0.76-1.46); GLOMERULAR FILTRATION RATE > 60.0 (>60); GLUCOSE, FASTING 93 MG/DL (70-100); MAGNESIUM LEVEL 2.2 MG/DL (1.8-2.4); PHOSPHORUS LEVEL 2.5 MG/DL (2.5-4.9); POTASSIUM SERUM 4.1 MEQ/L (3.5-5.1); SODIUM LEVEL 140 MEQ/L (136-145); THYROID STIMULATING HORMONE 0.452 uIU/ML (0.358-3.740); TOTAL PROTEIN 7.8 GM/DL (6.4-8.2)
[2020-01-07 18:02] LABS: HCG, SERUM QUALITATIVE NEGATIVE (NEGATIVE)
--- NOTE | 2020-01-07 19:40 | REPVR ---
PROCEDURE INFORMATION: Exam: MR Head Without Contrast Exam date and time: 01/07/2020 4:43 PM Age: 29 years old Clinical indication: Pain; Headache; Migraine; Aura effect not specified; Does respond to medication; Without migrainosus; Additional info: Headache, visual change, hand tingling TECHNIQUE: Imaging protocol: MR of the head without contrast. COMPARISON: CT Head without contrast 01/07/2020 3:44 PM FINDINGS: Brain: No acute infarct identified on the diffusion-weighted imaging. No parenchymal hemorrhage. No evidence of brain parenchymal edema or intracranial mass effect. No significant white matter disease; a punctate focus of increased signal intensity in the left frontal lobe subcortical white matter, perhaps a focus of chronic small vessel ischemic change, could be related to migrainous angiopathy. Ventricles: Normal. No ventriculomegaly. Bones/joints: Unremarkable. Sinuses: Normal as visualized. No acute sinusitis. Mastoid air cells: Normal as visualized. No mastoid effusion. Orbits: Unremarkable. Soft tissues: Unremarkable. IMPRESSION: No evidence of acute infarct. Electronically signed by: Bianka Jacob On 01/07/2020 19:40:10 PM
--- NOTE | 2020-01-07 19:43 | REPVR ---
PROCEDURE INFORMATION: Exam: MR Angiogram Head Without Contrast, Arteries Exam date and time: 01/07/2020 4:43 PM Age: 29 years old Clinical indication: Pain; Headache; Additional info: Headache, visual change, hand tingling TECHNIQUE: Imaging protocol: MR angiogram head without contrast. Exam focused on the arteries. COMPARISON: CT Head without contrast 01/07/2020 3:44 PM FINDINGS: ANTERIOR CIRCULATION: Right internal carotid artery: Intracranial segment is patent with no significant stenosis. No aneurysm. Right middle cerebral artery: No occlusion or significant stenosis. No aneurysm. Right anterior cerebral artery: No occlusion or significant stenosis. No aneurysm. Left internal carotid artery: Intracranial segment is patent with no significant stenosis. No aneurysm. Left middle cerebral artery: No occlusion or significant stenosis. No aneurysm. Left anterior cerebral artery: No occlusion or significant stenosis. No aneurysm. POSTERIOR CIRCULATION: Right vertebral artery: No occlusion or significant stenosis. No aneurysm. Left vertebral artery: No occlusion or significant stenosis. No aneurysm. Basilar artery: No occlusion or significant stenosis. No aneurysm. Right posterior cerebral artery: No occlusion or significant stenosis. No aneurysm. Left posterior cerebral artery: No occlusion or significant stenosis. No aneurysm. IMPRESSION: No stenosis or occlusion. Electronically signed by: Bianka Jacob On 01/07/2020 19:43:31 PM
[2020-01-07 19:51] VITALS: BP 137/84
== END 2020-01-07 20:29 | disposition home or self-care (01) ==
LOC: M ED 15:18
DX: R51 Headache (principal); Z79.3 Long term (current) use of hormonal contraceptives; F12.20 Cannabis dependence, uncomplicated
CPT/HCPCS: 70450; 70544; 70551; 80048; 80076; 83735; 84100; 84439; 84443; 84703; 85025; 96361; 96374; 99284; J2765

== ENCOUNTER → 2021-07-13 | Outpatient (CLI) | payer OTHER ==
[~2021-07-13] MED LIST changes: +ACET-683 PO; +OXYC-600 PO; -OXYC1TAB PO; +TRI-TAB16
[2021-07-13 09:54] LABS: BASO % 0.3 % (0.0-1.0); EOS # 0.1 10^3/uL (0.0-0.5); EOS % 1.4 % (0.0-3.0); HEMATOCRIT 41.6 % (36.0-47.0); HEMOGLOBIN 14.3 g/dl (12.0-15.5); LYMPH # 1.8 10^3/uL (1.5-5.0); LYMPH % 29.8 % (24.0-44.0); MEAN CORPUSCULAR HEMOGLOBIN 30.2 pg (27.0-33.0); MEAN CORPUSCULAR HGB CONC 34.4 g/dl (32.0-36.5); MEAN CORPUSCULAR VOLUME 87.9 fl (80.0-96.0); MONO # 0.4 10^3/uL (0.0-0.8); MONO % 6.4 % (2.0-8.0); NEUTROPHILS # 3.7 10^3/uL (1.5-8.5); NEUTROPHILS % 61.8 % (36.0-66.0); PLATELET COUNT, AUTOMATED 203 10^3/uL (150-450); RED BLOOD COUNT 4.73 10^6/uL (4.00-5.40); WHITE BLOOD COUNT 5.9 10^3/uL (4.0-10.0)
[2021-07-13 10:09] LABS: ALBUMIN 4.6 GM/DL (3.2-5.2); ALT/SGPT 25 U/L (12-78); BILIRUBIN,TOTAL 1.3 MG/DL (0.2-1.0); BLOOD UREA NITROGEN 15 MG/DL (7-18); CALCIUM LEVEL 9.9 MG/DL (8.5-10.1); CARBON DIOXIDE LEVEL 27 MEQ/L (21-32); CHLORIDE LEVEL 108 MEQ/L (98-107); CHOLESTEROL LEVEL 224 MG/DL (<200); CHOLESTEROL RISK RATIO 4.072 (<5); CREATININE FOR GFR 0.69 MG/DL (0.55-1.30); GLOMERULAR FILTRATION RATE > 60.0 (>60); GLUCOSE, FASTING 83 MG/DL (70-100); HDL CHOLESTEROL 55 MG/DL (>40); LDL CHOLESTEROL 146 MG/DL (<100); NON-HDL-C 169 MG/DL; POTASSIUM SERUM 4.2 MEQ/L (3.5-5.1); SODIUM LEVEL 141 MEQ/L (136-145); TOTAL PROTEIN 8.6 GM/DL (6.4-8.2); TRIGLYCERIDES LEVEL 116 MG/DL (<150)
== END ==
LOC: M LAB 08:36
PROVIDERS: ATTEND Nurse Practitioner Family
DX: R07.89 Other chest pain (principal)

== ENCOUNTER → 2021-07-20 | Outpatient (CLI) | payer OTHER | LOC: M RAD 08:24 | PROVIDERS: ATTEND Nurse Practitioner Family | DX: R10.11 Right upper quadrant pain (principal) ==

== ENCOUNTER → 2023-02-28 | Outpatient (CLI) | payer OTHER ==
[2023-02-28 14:23] LABS: BASO % 0.2 % (0.0-1.0); EOS # 0.1 10^3/uL (0.0-0.5); EOS % 1.1 % (0.0-3.0); HEMATOCRIT 38.4 % (36.0-47.0); HEMOGLOBIN 13.3 g/dl (12.0-15.5); LYMPH % 30.1 % (24.0-44.0); MEAN CORPUSCULAR HEMOGLOBIN 30.7 pg (27.0-33.0); MEAN CORPUSCULAR HGB CONC 34.6 g/dl (32.0-36.5); MEAN CORPUSCULAR VOLUME 88.7 fl (80.0-96.0); MONO # 0.4 10^3/uL (0.0-0.8); MONO % 6.4 % (2.0-8.0); NEUTROPHILS # 4.1 10^3/uL (1.5-8.5); PLATELET COUNT, AUTOMATED 237 10^3/uL (150-450); RED BLOOD COUNT 4.33 10^6/uL (4.00-5.40); WHITE BLOOD COUNT 6.5 10^3/uL (4.0-10.0)
[2023-02-28 14:50] LABS: ERYTHROCYTE SEDIMENTATION RATE 7 mm/hr (0-20)
[2023-03-05 15:04] LABS: ALBUMIN 5.1 G/DL (3.9-4.9); ALKALINE PHOSPHATASE 49 IU/L (44-121); ALT/SGPT 13 IU/L (0-32); AST/SGOT 14 IU/L (0-40); BILIRUBIN,TOTAL 1.1 MG/DL (0.0-1.2); BLOOD UREA NITROGEN 12 MG/DL (8-27); CALCIUM LEVEL 9.8 MG/DL (8.7-10.3); CARBON DIOXIDE LEVEL 24 mmol/L (20-29); CHLORIDE LEVEL 101 mmol/L (96-106); GLOMERULAR FILTRATION RATE > 60.0 (>59); POTASSIUM SERUM 4.5 mmol/L (3.5-5.2); SODIUM LEVEL 141 mmol/L (134-144); TOTAL PROTEIN 7.3 G/DL (6.0-8.5)
[2023-03-05 15:05] LABS: FREE T4 1.39 NG/DL (0.82-1.77); IRON (FE) 96 UG/DL (27-139); THYROID STIMULATING HORMONE 0.436 uIU/ML (0.450-4.500); TOTAL IRON BINDING CAPACITY 349 UG/DL (250-450)
[2023-03-05 15:06] LABS: FERRITIN 113 NG/ML (15-150); TOTAL 25(OH) VITAMIN D 32.1 NG/ML (30-100)
[2023-03-05 15:08] LABS: GLUCOSE, FASTING 84 MG/DL (70-99)
== END ==
LOC: M RAD 13:44
PROVIDERS: ATTEND Nurse Practitioner Family
DX: R42 Dizziness and giddiness (principal); M25.571 Pain in right ankle and joints of right foot

== ENCOUNTER → 2024-12-07 | Outpatient (CLI) | payer OTHER ==
[~2024-12-07] MED LIST changes: +BARIUM SULFATE 700 MG TABLET As Ordered ONE; +E-Z-GAS II EFFERVESCENT PACKET (SODIUM BICARB./CITRIC ACID/SIMETHICONE) As Ordered ONE; +E-Z-HD 98% w/w 340 GM SUSP BTL As Ordered ONE; +E-Z-PAQUE 96% w/w SUSP 176 GM BTL As Ordered ONE
== END ==
LOC: M RAD 09:03
PROVIDERS: ATTEND Nurse Practitioner Family
DX: R13.10 Dysphagia, unspecified (principal)